=== PATIENT | male | born 1975 | race Caucasian/White ===

== ENCOUNTER 2020-11-24 11:41 | Emergency (ER) | payer OTHER ==
[~2020-11-24] VITALS: Ht 170.2 cm; Wt 64.9 kg
[~2020-11-24 11:41] MED LIST: DOXYCYCLINE 10100 MG PO; NAPROSYN500 MG; OXYCODONE HCL5 M1 PO; VALIUM5 MG
[2020-11-24] MEDS ORDERED: TRAMADOL 50 MG50 MG PO (12:32)
[2020-11-24] MEDS ORDERED: NAPROSYN500 MG PO (12:32)
[2020-11-24] MEDS ORDERED: AMOXICILLIN875 MG PO (12:32)
[2020-11-24 12:46] VITALS: BP 126/79
== END 2020-11-24 12:46 | disposition home or self-care (01) ==
LOC: ER 11:41
DX: K02.9 Dental caries, unspecified (principal); K05.10 Chronic gingivitis, plaque induced; Z79.899 Other long term (current) drug therapy; Z88.8 Allergy status to other drugs, medicaments and biological substances